=== PATIENT | female | born 1935 | race Caucasian/White ===

== ENCOUNTER → 2019-11-10 08:52 | Outpatient (CLI) | payer MEDICARE, BC ==
[2014-07-27 13:55] VITALS: BMI 27.4
[~2019-11-10 08:52] MED LIST: BETA CAROT10000 UNIT PO; CALCIUM 500 + D1 TAB PO; CLARITIN 10 MG10 MG PO; ELIQUIS2.5 MG PO; FISH OIL 1,0001 CA1 PO; ICAPS AREDS1 TAB.SA PO; NAPROSYN500 MG PO; NORVASC5 MG PO; PEPCID20 MG PO; PERCOCET 10/3251 TA1 PO; SYNTHROID100 MCG PO; VITAMIN B-121000 MCG PO; VITAMIN C1000 MG; VITAMIN C1000 MG PO; VITAMIN D31000 UNIT PO; ZOLOFT50 MG PO
== END | disposition home or self-care (01) ==
LOC: D.HCCECHO 08:52
PROVIDERS: ATTEND Internal Medicine Cardiovascular Disease
DX: R06.00 Dyspnea, unspecified (principal); I20.9 Angina pectoris, unspecified

== ENCOUNTER 2019-11-25 07:05 | Outpatient (CLI) | payer MEDICARE, BC ==
[~2019-11-25] VITALS: Ht 162.6 cm; Wt 66.9 kg
--- NOTE | ~2019-11-25 | HEMODYNAMI ---
PATIENT:DENNIS WASHINGTON MEDICAL RECORD: [id number] : 33 LOCATION:[facility] ADMISSION DATE: 11/25/19 Generatedon:11/25/201910:19 Patient name: DENNIS WASHINGTON Patient #: [id number] SSN: : 1935 Date of study: 11/25/2019 Page: Of Hemodynamic Procedure Report Patient Data Patient Demographics Procedure consent was obtained First Name: DENNIS Gender: Female Last Name: PADMINI : 1935 Middle Initial: R Age: 83 year(s) Patient #: [id number] Race: Unknown Additional ID: [id number] Contact details [address]: [address] [place] [address] [place] State: [place] City: [facility] Zip code: [address] Past Medical History Performed procedures and imaging results Date Procedure Procedure Results Comments Stress testing Positive->Intermediate with SPECT MPI risk Allergies Allergen Reaction Date Comments Reported Other allergy 11/25/2019 SULFA, PERCOCET, FLONASE,CLINDAMYCIN, BACTRIM, XITHROMAX, ADHESIVE TAPE, Admission Admission Data Admission Date: 11/25/2019 Admission Time: 7:05 Arrival Date: 11/25/2019 Arrival Time: 0:00 Height (in.): 63.78 BSA: 1.72 (m2) Height (cm.): 162 BMI: 25.53 (kg/m2) Weight (lbs.): 147.71 Weight (kg.): 67 Lab Results Lab Result Date: 11/25/2019 Lab Result Time: 0:00 Biochemistry Name Units Result Min Max BUN mg/dl 24 --(----)-* 7 18 Creatinine mg/dl 1.4 --(----)*- 0.6 1.3 eGFR ml/min 38 *-(----)-- 90 120 NONAFRICAN CBC Name Units Result Min Max Hematocrit % 53.7 --(---*)-- 42 54 Hemoglobin g/dl 17.6 --(----)*- 13.5 17.5 Procedure Procedure Types Cath Procedure Diagnostic Procedure [facility] w/Coronaries Sedation Charges Moderate Sedation up to 30 minutes PCI Procedure Coronary Stent Coronary Stent Initial Hemochron ACT Test Procedure Description Procedure Date Procedure Date: 11/25/2019 Procedure Start Time: 9:53 Procedure End Time: 10:14 Procedure Staff Name Function Angel Bryson MD Performing Physician Berta Sauceda RT Monitor Stephanie Irvin RT Scrub Christy Palacio RN Nurse Procedure Data Cath Procedure Fluoroscopy Diagnostic fluoroscopy Total fluoroscopy Time: 4.5 time: 4.5 min min Diagnostic fluoroscopy Total fluoroscopy dose: 397 dose: 397 mGy mGy Contrast Material Contrast Material Type Amount (ml) Isovue 300 75 Entry Location Entry Primary Successful Side Size Upsize Upsize Entry Closure Lyle ccessful Closure Location (Fr) 1 (Fr) 2 (Fr) Remarks Device Remarks Radial Right 6 Fr Mechanical artery Short Compression Estimated blood loss: 10 ml Diagnostic catheters Device Type Used For End Catheter Placement DIAGNOSTIC [place] 110cm 5 Procedure Fr catheter ([id number]) Procedure Complications No complications Procedure Medications Medication Administration Route Dosage 0.9% NaCl I.V. 100 ml/hr Oxygen etCO2 Nasal cannula 2 l/min Lidocaine 2% added to field 20 Heparin Flush Bag added to field 2 bags (1000units/500ml NS) Radial Cocktail added to field 1 syringe (Verapamil 2mg/Nitro 400mcg/Heparin 1500units) Versed I.V. 1 mg Fentanyl I.V. 25 mcg Heparin Bolus I.V. 6500 units Radial Cocktail added to field 1 syringe (Verapamil 2mg/Nitro 400mcg/Heparin 1500units) Plavix P.O. 600 mg Hemodynamics Rest BSA: 1.72 (m2) HGB: 17.6 (g/dl) O2 Consumption: Estimated: 151.72 (ml/min) O2 Co nsumption indexed: Estimated:88.21 (ml/min/m) Heart Rate: 68 (bpm) Pressure Samples Time Site Value (mmHg) Purpose Heart Use Rate(bpm) 9:55 LV 96/-8,6 Snapshot 53 9:56 AO 117/47(76) Pullback 76 Gradients Valve Time Site Site 2 Mean SEP/DFP Peak To Heart Use 1 (mmHg) (sec/min) Peak Rate (mmHg) (bpm) Aortic 9:56 LV AO 15 7 76 117/47(76) Calculations Valve P-P Mean Valve Index Valve Source Name Gradient Area Flow (cm2) Aortic 15 15 Snapshots Pre Cath Intra NCS Post Cath Vital Signs Time Heart Resp SPO2 etCO2 NIBP (mmHg) Rhythm Pain Sedation Rate (ipm) (%) (mmHg) Status Level (bpm) 9:38:30 68 11 100 33 162/74(131) NSR 0 (11) 10(A) , No pain 9:42:54 65 15 99 36.7 147/70(117) NSR 0 (11) 10(A) , No pain 9:47:12 63 26 99 37.8 134/62(105) NSR 0 (11) 10(A) , No pain 9:51:34 63 26 99 36 124/63(100) NSR 0 (11) 9(A) , No pain 9:55:52 65 27 99 36 118/59(93) NSR 0 (11) 9(A) , No pain 10:00:08 65 25 98 34.5 127/61(105) NSR 0 (11) 9(A) , No pain 10:04:26 65 11 99 24 134/63(109) NSR 0 (11) 9(A) , No pain 10:08:48 70 20 100 33.8 142/62(105) NSR 0 (11) 10(A) , No pain 10:13:07 73 11 99 32.2 159/82(123) NSR 0 (11) 10(A) , No pain Medications Time Medication Route Dose Verified Delivered Reason Not es Effectiveness by by 9:37:19 0.9% NaCl I.V. 100 Angel Christy used for ml/hr Braydno Palacio sales administrator 9:37:25 Oxygen etCO2 2 l/min Angel Christy used for Nasal Braydon Palacio procedure cannula RN 9:37:32 Lidocaine 2% added 20ml Angel Angel for local to vial Braydon Bryson MD anesthetic field 9:37:38 Heparin Flush added 2 bags Angel Angel used for Bag to Braydon Bryson MD procedure (1000units/500ml field NS) 9:37:43 Radial Cocktail added 1 Angel Angel used for (Verapamil to syringe Braydon Bryson MD procedure 2mg/Nitro field 400mcg/Heparin 1500units) 9:46:19 Versed I.V. 1 mg Angel Christy for sedation Braydon Palacio RN 9:46:30 Fentanyl I.V. 25 mcg Angel Christy for sedation Braydon Palacio RN 10:00:51 Heparin Bolus I.V. 6500 Angel Christy for trina ified units Braydon Palacio anticoagulation with Dr. SHANI Bryson 10:07:34 Radial Cocktail added 1 Angel Christy used for (Verapamil to syringe Braydon Palacio procedure 2mg/Nitro field RN 400mcg/Heparin 1500units) 10:09:09 Plavix P.O. 600 mg Angel Christy for Braydon Palacio antiplatelet RN therapy Procedure Log Time Note 9:13:47 Informed consent obtained and on chart 9:14:07 Procedure Status Elective Heart Cath (OP). 9:14:08 Time tracking: Regular hours (M-F 7:00 - 5:00) 9:14:11 Plan of Care:Hemodynamics will remain stable., Cardiac rhythm will remain stable., Comfort level will be maintained., Respiratory function will remain adequate., Patient/ family verbilizes understanding of procedure., Procedure tolerated without complication., Recovers from procedure without complications.. 9:14:17 Christy Palacio RN sent for patient. Start room use. 9:14:21 H&P Date Dictated: 11/25/2019 New H&P dictated by physician.. 9:21:05 Patient received from Pre/Post Procedure Room to CCL 1 Alert and oriented. Tansferred to table in Supine position. 9:21:06 Warm blankets applied, and jasper hugger turned on for patient comfort. 9:21:06 Correct patient and procedure confirmed by team. 9:21:07 ECG and BP/O2 sat monitors applied to patient. 9:22:01 Lab Result : BUN 24 mg/dl 9:22:01 Lab Result : Creatinine 1.4 mg/dl 9:22:01 Lab Result : eGFR NONAFRICAN 38 ml/min 9:22:01 Lab Result : Hemoglobin 17.6 g/dl 9:22:01 Lab Result : Hematocrit 53.7 % 9:27:57 Patient Weight : 147.71 lbs 9:28:01 Patient Height : 63.78 inches 9:28:05 Arrival Date: 11/25/2019 12:00:00 AM 9:37:10 Vital chart was started 9:37:19 0.9% NaCl 100 ml/hr I.V. was administered by Christy Palacio RN; used for procedure; Verbal order read back and verified. 9:37:25 Oxygen 2 l/min etCO2 Nasal cannula was administered by Christy Palacio RN; used for procedure; Verbal order read back and verified. 9:37:32 Lidocaine 2% 20ml vial added to field was administered by Angel Bryson MD; for local anesthetic; Verbal order read back and verified. 9:37:38 Heparin Flush Bag (1000units/500ml NS) 2 bags added to field was administered by Angel Bryson MD; used for procedure; Verbal order read back and verified. 9:37:43 Radial Cocktail (Verapamil 2mg/Nitro 400mcg/Heparin 1500units) 1 syringe added to field was administered by Angel Bryson MD; used for procedure; Verbal order read back and verified. 9:40:27 Baseline sample Acquired. 9:41:00 Rhythm: sinus rhythm 9:41:01 Full Disclosure recording started 9:41:02 Pre-procedure instructions explained to patient. 9:41:03 Pre-op teaching completed and patient verbalized understanding. 9:41:21 PTS. FAMILY TO BE REACHED WITH A PHONE CALL 9:41:23 Patient NPO since Midnight. 9:41:39 Patient allergic to Other allergySULFA, PERCOCET, FLONASE,CLINDAMYCIN, BACTRIM, XITHROMAX, ADHESIVE TAPE, 9:42:54 Is patient on blood thinner?No 9:42:55 Patient diabetic? No. 9:42:57 Previous problem with sedation/anesthesia? No ? 9:42:59 Snore? Yes 9:43:00 Sleep apnea? No 9:43:20 Deviated septum? No 9:43:23 Opens mouth fully? Yes 9:43:24 Sticks out tongue? Yes 9:43:27 Airway obstruction? No ? 9:43:30 Dentures? No ? 9:43:32 Pre procedure: right dorsailis pedis pulse 1+ Palpable, but thready & weak; easily obliterated 9:43:35 Modified Adi's test Ulnar < 7 seconds 9:43:37 Patient pain scale 0/10 ?. 9:43:50 IV patent on arrival in right antecubital with 0.9% NaCl at [facility]. 9:43:53 Lab results completed and on chart. 9:43:57 Right Radial & Right Groin area was prepped with chlora-prep and draped in sterile fashion 9:43:58 Alarms reviewed by R. N. 9:43:58 Sharps counted by scrub and verified by R.N. 9:45:48 --------ALL STOP TIME OUT------ 9:45:49 Final Timeout: patient, procedure, and site verified with staff and physician. All members of the team are in agreement. 9:45:50 Right Radial & Right Groin site verified by team. 9:45:54 Fire Safety Assessment: A--An alcohol-based skin anteseptic being used preoperatively., C--Open oxygen or nitrous oxide is being used., D--An ESU, laser, or fiber-optic light is being used. 9:46:19 Versed 1 mg I.V. was administered by Christy Palacio RN; for sedation; Verbal order read back and verified. 9:46:30 Fentanyl 25 mcg I.V. was administered by Christy Palacio RN; for sedation; Verbal order read back and verified. 9:47:42 Physical assessment completed. ASA score P 2 - A patient with mild systemic disease as per Angel Bryson MD. 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 9:47:49 Maximum allowable contrast dose (3.7 X eGFR X 0.75)105 ml. 9:47:53 Sedation plan: IV Moderate Sedation Medication:Versed, Fentanyl 9:51:49 Zero performed for pressure channel P1 9:51:56 Procedure started. 9:53:05 Local anesthetic to right radial artery with Lidocaine 2% by Angel Bryson MD.INITIAL ACCESS ONLY 9:53:35 Use device set Radial Dx or PCI 9:53:37 ACIST Syringe (99647) opened to sterile field. 9:53:38 Bag Decanter () opened to sterile field. 9:53:38 ACIST Hand Control (73569) opened to sterile field. 9:53:38 ACIST Manifold (96040) opened to sterile field. 9:53:39 Tegaderm 4 x 4 (1626W) opened to sterile field. 9:53:40 Medline Cath Pack ([id number]) opened to sterile field. 9:53:40 MBrace Wrist Support ([id number]) opened to sterile field. 9:53:41 NEEDLE Cook 21G 4cm Radial (X53885) opened to sterile field. 9:53:42 EMERALD Guide Wire (502-352) opened to sterile field. 9:53:43 SHEATH 6FR RAIN (2598931) opened to sterile field. 9:53:57 A 6 Fr Short sheath was inserted into the Right Radial artery 9:55:00 A DIAGNOSTIC [place] 110cm 5 Fr catheter (790246) was advanced over the wire and used for Procedure. 9:55:07 LV gram done using ZEE 9:55:13 Injector settings: Ml/sec: 5, Volume: 15, 9:55:47 LV hemodynamics recorded. 9:55:51 EF : 60 % 9:57:30 LCA angiography performed. 9:57:48 RCA angiography performed. 9:57:51 ACCDominant side:Left 9:57:54 Catheter exchanged over wire. 9:57:55 Proceeding to intervention. 9:58:27 BMW 300cm Straight [place] 2 wire ([id number]) opened to sterile field. 9:58:27 TUBING High Pressure Extension Tubing (Braydon) ([id number]) opened to sterile field. 9:58:28 INFLATOR Merit BasixCompak (XY6427) opened to sterile field. 9:58:29 GUIDE 6FR XBLAD 3.5 catheter ([id number]) opened to sterile field. 9:58:42 Pre PCI Site: [place] LAD has 80% stenosis. 9:58:44 ACC Pre-intervention QUANG Flow is 3. 9:59:31 6 Fr XBLAD 3.5 guide catheter was inserted over the wire 10:00:40 BMW 300 wire advanced. 10:00:51 Heparin Bolus 6500 units I.V. was administered by Christy Palacio RN; for anticoagulation; verified with Dr. Bryson Verbal order read back and verified. 10:01:40 Wire advanced across lesion. 10:05:29 Place stent Inflation Number: 1 A JODI RX 3.0 x 15 stent ([id number]) was prepped and advanced across the Mid LAD . The stent was deployed at 14 PHILIP for 0:00 (min:sec) . 10:05:59 Stent catheter was removed intact over wire. 10:06:12 Wire removed. 10:06:15 Guide catheter removed. 10:07:24 ZEPHYR REGULAR TR BAND (044761) opened to sterile field. 10:07:34 Radial Cocktail (Verapamil 2mg/Nitro 400mcg/Heparin 1500units) 1 syringe added to field was administered by Christy Palacio RN; used for procedure; Verbal order read back and verified. 10:08:47 Procedure ended.(Physican Out) 10:09:09 Plavix 600 mg P.O. was administered by hCristy Palacio RN; for antiplatelet therapy; Verbal order read back and verified. 10:10:21 Sheath removed intact; hemostasis achieved with Mechanical Compression to the Right Radial artery. 10:11:25 Fluoroscopy time 04.50 minutes. 10:11:29 Flurop Dose total: 397 10:11:29 Fluoroscopy dose: 397 mGy 10:11:33 Contrast amount:Isovue 300 75ml. 10:11:41 Dose Area Product 99158 mGy/cm. 10:11:45 Maximum allowable dose exceeded? No. 10:11:46 Sharps counted by scrub and verified by R.N. 10:11:50 Blunt band inflated with 10cc of air. 10:11:52 Insertion/operative site no bleeding no hematoma. 10:11:55 Post-procedure physical assessment completed. ASA score P 2 - A patient with mild systemic disease as per Angel Bryson MD. 10:11:58 Post procedure rhythm: sinus rhythm 10:12:04 Estimated blood loss: 10 ml 10:12:06 Post procedure instruction explained to patient.Patient verbalizes understanding. 10:12:06 Patient needs reinforcement of post procedure teaching. 10:12:54 Procedure type changed to Cath procedure, Diagnostic procedure, [facility], [facility] w/Coronaries, Sedation Charges, Moderate Sedation up to 30 minutes, PCI procedure, Coronary Stent, Coronary Stent Initial, Hemochron ACT Test 10:13:55 Procedure and supply charges have been captured, reviewed, submitted and are correct. 10:13:57 Procedure Complication : No complications 10:14:00 Vital chart was stopped 10:14:01 [facility] Findings: MVD- PCI performed (see procedure note) 10:14:03 Operative report dictated upon procedure completion. 10:14:03 See physician's report for complete and final results. 10:14:04 Report given to Pre/Post Procedure Room. 10:14:09 Patient transfered to Pre/Post Procedure Room with Bed. 10:14:15 Procedure ended. 10:14:15 Full Disclosure recording stopped 10:17:36 End room use (Document Last) 10:17:55 ACT drawn and resulted at OUT OF RANGE seconds. (normal therapeutic range 180-240 seconds). 10:18:43 ACT drawn and resulted at ? seconds. (normal therapeutic range 180-240 seconds). Intervention Summary Intervention Notes Time ActionType Lesion and Equipment Used Action# Pressure Duration Attributes 10:05:29 Place stent Mid LAD JODI RX 3.0 x 1 14 00:00 15 stent ([id number]) Device Usage Item Name Manufacture Quantity Catalog Hospital Part Current [facility] Lot# / Number Charge Number Stock Stock Serial# Code ACIST Syringe Acist 1 07473 060165 528673 657424 20 (27913) Medical Systems Inc Bag Decanter Microtek 1 2001S 991821 70812 277970 5 (2002S) Medical Inc. ACIST Hand Acist 1 21354 760925 601190 198057 5 Control Medical (53228) Systems Inc ACIST Manifold Acist 1 21400 141643 251194 429252 5 (22665) Medical Systems Inc Tegaderm 4 x 4 3M 1 1626W 294518 259779 865492 5 (1626W) Medline Cath Medline 1 [id number] 584371 95383 142934 5 Pack ([id number]) MBrace Wrist Advanced 1 140-0250-00 943073 81463 945862 5 Support Vascular ([id number]) Dynamics NEEDLE Cloud Your Car Medical 1 J70012 871211 661420 467641 5 21G 4cm Radial (E88138) EMERALD Guide Cardinal 1 502-455 591707 889450 933516 5 Wire (502-455) Health SHEATH 6FR Cardinal 1 8696534 150821 4646355 283125 5 RAIN (5261651) Health DIAGNOSTIC Terumo 1 40-7756 028606 461111 588910 5 [place] 110cm 5 Fr catheter (109861) BMW 300cm Diaz 1 6456980 412396 152432 836749 5 Straight Vascular [place] 2 wire (4377086) TUBING High Merit 1 [id number] 002593 75000 809723 10 Pressure Medical Extension Tubing (Bryson) ([id number]) INFLATOR Merit Merit 1 WD2835 439953 518784 276848 15 BasixCompak Medical (JP1416) GUIDE 6FR Cardinal 1 [id number] 382582 393391 959742 10 XBLAD 3.5 Health catheter (27727425) JODI RX 3.0 x Medtronic 1 [id number] 063683 1134425 162710 5 [id number] 15 stent ([id number]) ZEPHYR REGULAR Cardinal 1 306282 898713 5525220 094364 5 SodaHead (102015) Signature Audit [place] Stage Time Signature Unsigned Intra-Procedure 11/25/2019 Berta Sauceda 10:18:16 AM RT(R) Intra-Procedure 11/25/2019 Christy Palacio 10:18:43 AM RN Intra-Procedure 11/25/2019 Angel Bryson MD 10:19:14 AM [facility] [address] [place] [address]
[2019-11-25] MEDS ORDERED: VITAMIN D5000 UNI1 PO (07:53)
[2019-11-25] MEDS ORDERED: CALCIUM 600 +1 EAC3 PO (07:55)
[2019-11-25 08:22] VITALS: BP 173/65; Ht 162.6 cm; Wt 66.9 kg
[2019-11-25 08:43] LABS: HEMATOCRIT 53.7 % (36.0-48.0); HEMOGLOBIN 17.6 g/dL (12-16); MCH 29.1 pg (26.0-34.0); MCHC 32.8 g/dL (31.0-37.0); MCV 88.9 fL (80.0-100.0); MEAN PLATELET VOLUME 9.4 fL (7.4-10.4); NEUTROPHILS 75.2 % (40-80); RBC 6.04 10x6/uL (4.00-5.40); RDW 12.9 % (11.5-14.5); WBC 4.4 10x3/uL (4.8-10.8)
[2019-11-25 08:47] LABS: PLATELET COUNT 117 10x3/uL (130-400)
[2019-11-25 08:49] LABS: ANION GAP 11.2 mmol/L (8-16); CALCIUM 8.9 mg/dL (8.5-10.1); CARBON DIOXIDE 27.2 mmol/L (21.0-32.0); CHOL - HDL RATIO 2.9 ratio (2.3-4.1); CREATININE - SERUM 1.4 mg/dL (0.6-1.3); LDL-HDL RATIO 1.7 ratio (1.5-3.5); POTASSIUM - SERUM 4.4 mmol/L (3.5-5.1)
--- NOTE | 2019-11-25 10:20 | NUR ---
PT ARRIVED BY STRETCHER. PLACED ON MONITORS. ASSESSMENT COMPLETED. VSS AT THIS TIME. CALL LIGHT WITHIN REACH.
[2019-11-25] MEDS ORDERED: PLAVIX75 MG PO (10:27)
[2019-11-25] MEDS ORDERED: BAYER CHEWABLE81 MG PO (10:27)
--- NOTE | 2019-11-25 10:35 | NUR ---
PT ON BEDPAN. VOIDED APPROX 450cc OF CLEAR YELLOW URINE WITHOUT DIFFICULTY. ZACHERY-CARE GIVEN. RIGHT WRIST Z BAND IN PLACE. NO BLEEDING/HEMATOMA NOTED. VSS AT THIS TIME. CALL LIGHT WITHIN REACH.
--- NOTE | 2019-11-25 11:08 | NUR ---
PT RESTING COMFORTABLY. VSS. RIGHT WRIST Z BAND IN PLACE. NO BLEEDING/HEMATOMA NOTED. CALL LIGHT WITHIN REACH. VSS AT THIS TIME.
--- NOTE | 2019-11-25 11:40 | NUR ---
PT RESTING COMFORTABLY. DR. MOONEY ROUNDED AND SPOKE WITH PT AND UPDATED HER ON PLAN OF CARE. RIGHT WRIST Z BAND IN PLACE. NO BLEEDING/HEMATOMA NOTED. CAP REFILL TO RIGHT HAND < 3 SECS. WARM TO TOUCH
--- NOTE | 2019-11-25 12:10 | NUR ---
RIGHT WRIST Z BAND IN PLACE. NO BLEEDING/HEMATOMA NOTED. CALL LIGHT WITHIN REACH. VSS AT THIS TIME. PT RESTING COMFORTABLY.
--- NOTE | 2019-11-25 13:00 | NUR ---
PT AWAKE AND ALERT. HEAD OF BED AT 45DEGREES. RIGHT WRIST Z BAND IN PLACE. NO BLEEDING/HEMATOMA NOTED. BRUISING NOTED AT INSERTION SITE, BUT NO HEMATOMA. 2cc OF AIR REMOVED FROM Z BAND. TOLERATED WELL. SET UP WITH SANDWICH TRAY AND DRINK. DENIES NAUSEA/PAIN AT THIS TIME.
--- NOTE | 2019-11-25 13:15 | NUR ---
2cc OF AIR REMOVED FROM Z BAND. NO BLEEDING/HEMATOMA NOTED. VSS.
--- NOTE | 2019-11-25 13:30 | NUR ---
3cc OF AIR REMOVED FROM Z BAND. NO BLEEDING/HEMATOMA NOTED. PT VOIDED 450cc OF CLEAR YELLOW URINE ON BEDPAN. ZACHERY-CARE GIVEN. VSS AT THIS TIME.
--- NOTE | 2019-11-25 13:45 | NUR ---
REMAINDER OF AIR REMOVED FROM Z BAND (APPROX 3CC). TOLERATED WELL. NO BLEEDING/HEMATOMA NOTED. CALL LIGHT WITHIN REACH. VSS AT THIS TIME. WILL CONTINUE TO MONITOR.
--- NOTE | 2019-11-25 14:00 | NUR ---
Z BAND REMOVED AND DRESSING APPLIED. TOLERATED WELL. NO BLEEDING/HEMATOMA NOTED
--- NOTE | 2019-11-25 14:20 | NUR ---
DISCUSSED DISCHARGE INSTRUCTIONS WITH PT. SHE VOICED UNDERSTANDING. PIV D/C'D WITH CATH TIP INTACT. TOLERATED WELL. RIGHT WRIST DRESSING C/D/I. NO S/S OF HEMATOMA NOTED. PT INSTRUCTED TO GET UP AND DRESSED AT THIS TIME. CALL LIGHT WITHIN REACH. NO ASSISTANCE NEEDED.
--- NOTE | 2019-11-25 14:40 | NUR ---
PT TAKEN DOWN TO VEHICLE BY WHEELCHAIR. NO S/S OF DISTRESS NOTED. ALL BELONGINGS AND PAPERWORK IN HAND.
== END 2019-11-25 14:40 | disposition home or self-care (01) ==
LOC: D.CATH 07:05
PROVIDERS: ATTEND Internal Medicine Cardiovascular Disease
DX: I25.119 Atherosclerotic heart disease of native coronary artery with unspecified angina pectoris (principal); R94.39 Abnormal result of other cardiovascular function study; I10 Essential (primary) hypertension; K21.9 Gastro-esophageal reflux disease without esophagitis
CPT/HCPCS: 93458; C9600

== ENCOUNTER → 2020-01-04 10:00 | Outpatient (CLI) | payer MEDICARE, BC ==
[2019-11-25 08:22] VITALS: BMI 25.3
[~2020-01-04 10:00] MED LIST changes: +BAYER CHEWABLE81 MG PO; +CALCIUM 600 +1 EAC3 PO; +PLAVIX75 MG PO; +VITAMIN D5000 UNI1 PO
== END | disposition home or self-care (01) ==
LOC: D.US 12-30 11:30
PROVIDERS: ATTEND Internal Medicine Cardiovascular Disease
DX: R42 Dizziness and giddiness (principal)